=== PATIENT | male | born 1955 | race Hispanic/Latino ===

== ENCOUNTER 2024-07-22 10:51 | Emergency (ER) | payer SELFPAY ==
[~2024-07-22] VITALS: Ht 165.1 cm; Wt 64.0 kg
[2024-07-22] MEDS ORDERED: TobRAMYCin/DEXAmethASONE OPTH SUSP 2.5 ML BOT OD SCH (11:00)
[2024-07-22] MEDS ORDERED: TOBR5DRO46 OD (11:23)
[2024-07-22 11:43] VITALS: BP 123/48; PULSE 77; RESP 18; O2SAT 99
[2024-07-22] MEDS: tobRAMYCin 0.3% 5 ML OPTH SOLN OD SCH (11:51)
[2024-07-22] MEDS: TETRACAINE HCL 0.5% 4 ML OPHTH SOLN OP SCH (11:51)
== END 2024-07-22 12:14 | disposition home or self-care (01) ==
LOC: EDH 10:51
DX: T15.01XA Foreign body in cornea, right eye, initial encounter (principal); X58.XXXA Exposure to other specified factors, initial encounter; Y93.89 Activity, other specified; Y92.89 Other specified places as the place of occurrence of the external cause; Y99.8 Other external cause status
CPT/HCPCS: 65222